=== PATIENT | male | born 1950 | race Caucasian/White ===

== ENCOUNTER → 2016-08-18 | Outpatient (CLI) | payer OTHER | LOC: HEART 5 13:00 | DX: I73.9 Peripheral vascular disease, unspecified (principal); E11.9 Type 2 diabetes mellitus without complications ==

== ENCOUNTER → 2016-09-26 | Outpatient (CLI) | payer OTHER | LOC: CT 10:11 | DX: R10.31 Right lower quadrant pain (principal); K57.30 Diverticulosis of large intestine without perforation or abscess without bleeding; R93.3 Abnormal findings on diagnostic imaging of other parts of digestive tract; Z90.89 Acquired absence of other organs; Z90.49 Acquired absence of other specified parts of digestive tract; Z90.2 Acquired absence of lung [part of] | CPT/HCPCS: 36415; 82565; 84520; Q9962 ==

== ENCOUNTER 2020-06-26 15:03 | Emergency (ER) | payer OTHER ==
[~2020-06-26 15:03] MED LIST: ALLEGRA ALLERG180 MG PO; AZITHROMYCIN250 MG PO; BROVANA15 MCG/2 M INH; BUMEX 1MG TABLET1 MG PO; DECADRON6 MG PO; DILTIAZEM 24HR120 M1 PO; ECOTRIN81 MG PO; ELIQUIS 5 MG TAB5 MG PO; FLUZONE QU60 MCG/015 IM; HYDROXYCHLOROQ200 MG PO; IMDUR ER TAB 6060 MG PO; IPRAT-ALBUT 0.5-3 ML INH; ISOSORBIDE MON120 MG PO; LOPRESSOR 50 MG50 MG PO; LOPRESSOR50 MG PO; LOTENSIN TAB 1010 MG PO; MELATONIN5 MG PO; NORVASC 5 MG TAB5 MG PO; OMEPRAZOLE20 MG PO; PLETAL 100 MG100 MG PO; PULMICORT0.5 MG/21 INH; ZOCOR20 MG PO
[2020-06-26 16:15] LABS: RED BLOOD COUNT 2.69 M/UL (4.20-5.50); WHITE BLOOD COUNT 11.2 K/UL (4.5-11.0)
[2020-06-26 16:19] LABS: HEMOGLOBIN 6.8 gm/dl (14.0-17.5)
[2020-09-12] MEDS ORDERED: FLOMAX 0.4 MG0.4 MG PO (08:06)
[2020-09-12] MEDS ORDERED: BUDESONIDE0.5 MG/2 M INH (08:07)
[2020-09-12] MEDS ORDERED: FERROUS SULFAT325 M2 PO (08:07)
== END 2020-06-27 00:50 | disposition home or self-care (01) ==
LOC: ER1 15:03
PROVIDERS: Family Medicine
DX: D64.9 Anemia, unspecified (principal); R58 Hemorrhage, not elsewhere classified; R06.02 Shortness of breath; Z85.21 Personal history of malignant neoplasm of larynx; Z98.890 Other specified postprocedural states; Z90.2 Acquired absence of lung [part of]
CPT/HCPCS: 36430; 80053; 83540; 83550; 85025; 85045; 86850; 86900; 86901; 86920; 94664; 94760; 99283; P9016

== ENCOUNTER 2020-08-18 13:31 | Emergency (ER) | payer OTHER ==
[2020-08-18 15:20] LABS: HEMOGLOBIN 12.1 gm/dl (14.0-17.5); RED BLOOD COUNT 4.14 M/UL (4.20-5.50); WHITE BLOOD COUNT 5.8 K/UL (4.5-11.0)
[2020-08-18 15:33] LABS: BUN/CREATININE RATIO 17 (0-10)
[2020-08-18] MEDS ORDERED: DOXYCYCLINE HY100 M2 PO (20:09)
[2020-08-18] MEDS ORDERED: TESSALON PERLE100 MG PO (20:09)
[2020-09-12] MEDS ORDERED: FLOMAX 0.4 MG0.4 MG PO (08:06)
[2020-09-12] MEDS ORDERED: FERROUS SULFAT325 M2 PO (08:07)
[2020-09-12] MEDS ORDERED: BUDESONIDE0.5 MG/2 M INH (08:07)
== END 2020-08-18 20:26 | disposition home or self-care (01) ==
LOC: ER1 13:31
PROVIDERS: Nurse Practitioner
DX: J44.1 Chronic obstructive pulmonary disease with (acute) exacerbation (principal); I25.10 Atherosclerotic heart disease of native coronary artery without angina pectoris; I11.9 Hypertensive heart disease without heart failure; Z86.16 Personal history of COVID-19; Z90.49 Acquired absence of other specified parts of digestive tract; Z87.891 Personal history of nicotine dependence; Z79.899 Other long term (current) drug therapy; Z85.818 Personal history of malignant neoplasm of other sites of lip, oral cavity, and pharynx
CPT/HCPCS: 71045; 80053; 82550; 82553; 83605; 83735; 83880; 84484; 85025; 85379; 85610; 85730; 87040; 93005; 99284; Q9967

== ENCOUNTER → 2020-08-30 | Outpatient (CLI) | payer OTHER ==
[~2020-08-30] MED LIST changes: +BUDESONIDE0.5 MG/2 M INH; +DOXYCYCLINE HY100 M2 PO; +FERROUS SULFAT325 M2 PO; +FLOMAX 0.4 MG0.4 MG PO; +TESSALON PERLE100 MG PO
[2020-08-31 10:15] LABS: CREATININE, URINE 486.4 mg/dL (Not Estab.)
== END ==
LOC: LAB 14:10
PROVIDERS: Internal Medicine Nephrology
DX: N18.9 Chronic kidney disease, unspecified (principal)
CPT/HCPCS: 36415; 80053; 81001; 82043; 82570; 84156

== ENCOUNTER → 2020-09-12 | Day surgery (SDC) | payer OTHER | END | disposition home or self-care (01) | LOC: OR 07:23 | DX: D12.5 Benign neoplasm of sigmoid colon (principal); D50.0 Iron deficiency anemia secondary to blood loss (chronic); I25.10 Atherosclerotic heart disease of native coronary artery without angina pectoris; I10 Essential (primary) hypertension; F17.219 Nicotine dependence, cigarettes, with unspecified nicotine-induced disorders; I49.9 Cardiac arrhythmia, unspecified; E66.01 Morbid (severe) obesity due to excess calories; J44.9 Chronic obstructive pulmonary disease, unspecified; K21.9 Gastro-esophageal reflux disease without esophagitis | CPT/HCPCS: J2704; J7040 ==

== ENCOUNTER → 2020-12-28 | Outpatient (CLI) | payer OTHER ==
[2020-12-28 14:08] LABS: HEMOGLOBIN 13.7 gm/dl (14.0-17.5); RED BLOOD COUNT 4.57 M/UL (4.20-5.50); WHITE BLOOD COUNT 7.1 K/UL (4.5-11.0)
[2020-12-29 10:14] LABS: CREATININE, URINE 169.4 mg/dL (Not Estab.)
== END ==
LOC: LAB 13:24
PROVIDERS: Internal Medicine Nephrology
DX: I10 Essential (primary) hypertension (principal); D64.9 Anemia, unspecified
CPT/HCPCS: 36415; 80053; 81001; 82043; 82570; 82728; 83540; 83550; 84156; 85027

== ENCOUNTER 2021-06-08 08:02 | Inpatient (IN) | payer OTHER ==
[~2021-06-08] VITALS: Ht 172.7 cm; Wt 87.1 kg
[2021-06-08 09:18] LABS: RED BLOOD COUNT 2.99 M/UL (4.20-5.50); WHITE BLOOD COUNT 11.5 K/UL (4.5-11.0)
[2021-06-08 09:20] LABS: HEMOGLOBIN 6.6 gm/dl (14.0-17.5)
[2021-06-08 09:23] LABS: BUN/CREATININE RATIO 13 (0-10)
[2021-06-08] MEDS ORDERED: CARBIDOPA-LEVO1 EAC6 PO (11:00)
[2021-06-08] MEDS ORDERED: MIRAPEX 0.250.25 MG PO (11:00)
[2021-06-08] MEDS ORDERED: LEVOCETIRIZINE D5 MG PO (11:01)
[2021-06-08] MEDS ORDERED: AMOXICILLIN875 MG PO (11:04)
[2021-06-08] MEDS ORDERED: YUPELRI175 MCG/3 INH (11:06)
[2021-06-09 08:05] LABS: RED BLOOD COUNT 3.54 M/UL (4.20-5.50); WHITE BLOOD COUNT 16.3 K/UL (4.5-11.0)
[2021-06-10 04:21] LABS: HEMOGLOBIN 7.2 gm/dl (14.0-17.5); RED BLOOD COUNT 3.22 M/UL (4.20-5.50)
[2021-06-10 04:24] LABS: WHITE BLOOD COUNT 9.3 K/UL (4.5-11.0)
--- NOTE | 2021-06-10 05:10 | NUR ---
PATIENT REQUESTED MEDICATION TO HELP HIM SLEEP AND FOR RESTLESS LEG SYNDROME. MELATONIN DID NOT WORK TWO NIGHTS AGO SO PATIENT REQUESTED SEROQUEL FROM THE PHYSICIAN AND WAS GRANTED A ONE TIME DOSE PLUS A ONE TIME DOSE OF REQUIP. REQUIP WORKED WELL FOR THE PATIENT AND SEROQUEL HELPED PATIENT SLEEP BUT PATIENT AWOKE AT APPROXIMATELY 0300 AND WAS VERY CONFUSED AND DISORIENTED TO TIME, PLACE AND SITUATION. PATIENT RE-ORIENTED RELATIVELY EASILY BUT NEEDED REINFORCEMENT. PATIENT ABLE TO GO BACK TO SLEEP EASILY AND CONTINUES TO REST WITH CALL CORNELL AT THE BEDSIDE.
[2021-06-11 04:43] LABS: HEMOGLOBIN 7.5 gm/dl (14.0-17.5); RED BLOOD COUNT 3.37 M/UL (4.20-5.50)
[2021-06-11 04:48] LABS: WHITE BLOOD COUNT 6.7 K/UL (4.5-11.0)
[2021-06-11] MEDS ORDERED: FERROUS SULFAT325 MG PO (13:13)
[2021-06-11] MEDS ORDERED: PROTONIX40 MG PO (13:13)
== END 2021-06-11 13:51 | disposition home or self-care (01) | DRG 378 ==
LOC: ER1 08:02 → CDU 09:56 → PROG CARE 09:56
PROVIDERS: Internal Medicine Gastroenterology; Physician Assistant; Physician Assistant Medical; ADMIT Internal Medicine
PROC: 30233N1 Transfusion of Nonautologous Red Blood Cells into Peripheral Vein, Percutaneous Approach (ICD-10-PCS; principal; 2021-06-08)
PROC: 0DBN8ZZ Excision of Sigmoid Colon, Via Natural or Artificial Opening Endoscopic (ICD-10-PCS; 2021-06-10)
PROC: 0W3P8ZZ Control Bleeding in Gastrointestinal Tract, Via Natural or Artificial Opening Endoscopic (ICD-10-PCS; 2021-06-10)
PROC: 0DJ08ZZ Inspection of Upper Intestinal Tract, Via Natural or Artificial Opening Endoscopic (ICD-10-PCS; 2021-06-10 08:15)
DX: K92.2 Gastrointestinal hemorrhage, unspecified (principal); D62 Acute posthemorrhagic anemia; Z20.822 Contact with and (suspected) exposure to COVID-19; I48.20 Chronic atrial fibrillation, unspecified; N17.9 Acute kidney failure, unspecified; I48.0 Paroxysmal atrial fibrillation; I12.9 Hypertensive chronic kidney disease with stage 1 through stage 4 chronic kidney disease, or unspecified chronic kidney disease; K64.8 Other hemorrhoids; K55.20 Angiodysplasia of colon without hemorrhage; J44.9 Chronic obstructive pulmonary disease, unspecified; K29.50 Unspecified chronic gastritis without bleeding; N18.9 Chronic kidney disease, unspecified; D63.1 Anemia in chronic kidney disease; K63.5 Polyp of colon; E78.5 Hyperlipidemia, unspecified; I25.10 Atherosclerotic heart disease of native coronary artery without angina pectoris; Z79.01 Long term (current) use of anticoagulants; Z95.5 Presence of coronary angioplasty implant and graft; Z99.81 Dependence on supplemental oxygen; Z85.118 Personal history of other malignant neoplasm of bronchus and lung; Z85.89 Personal history of malignant neoplasm of other organs and systems; I25.2 Old myocardial infarction; Z90.49 Acquired absence of other specified parts of digestive tract; Z88.0 Allergy status to penicillin; Z79.82 Long term (current) use of aspirin; Z87.891 Personal history of nicotine dependence; Z82.49 Family history of ischemic heart disease and other diseases of the circulatory system; Z80.1 Family history of malignant neoplasm of trachea, bronchus and lung
CPT/HCPCS: 36415; 36600; 71045; 80048; 80053; 82272; 82550; 82553; 82607; 82746; 82803; 83540; 83550; 83735; 83874; 83880; 84484; 85018; 85025; 85027; 86850; 86900; 86901; 86920; 93005; 94640; 94760; 99285; C9113; J1756; J2001; J2704; J7040; J7050; P9016; U0002